=== PATIENT | female | born 1965 | race Hispanic/Latino ===

== ENCOUNTER 2023-10-20 13:17 | Inpatient (IN) | payer OTHER ==
[~2023-10-20] VITALS: Ht 152.4 cm; Wt 75.3 kg
[2023-10-20 14:46] LABS: BASOPHILS # (AUTO) 0.04 K/uL (0.00-0.20); BASOPHILS % (AUTO) 0.5 % (0.0-5.0); EOSINOPHILS # (AUTO) 0.51 K/uL (0.00-0.70); EOSINOPHILS % (AUTO) 6.4 % (0.0-8.0); HEMATOCRIT 28.2 % (36-48); IMMATURE GRANULOCYTE ABSOLUTE 0.03 K/uL (0-1); LYMPHOCYTES # (AUTO) 1.2 K/uL (1.0-4.8); MEAN CORPUSCULAR HEMOGLOBIN 27.9 pg (27.0-33.0); MEAN CORPUSCULAR VOLUME 84.7 fL (79-99); MONOCYTES # (AUTO) 0.5 K/uL (0.1-1.0); MONOCYTES % (AUTO) 6.8 % (3.0-13.0); NEUTROPHILS # (AUTO) 5.6 K/uL (1.8-7.7); NEUTROPHILS % (AUTO) 70.9 % (40.0-77.0); PLATELET COUNT (AUTO) 281 K/uL (130-400); RED BLOOD CELL COUNT(AUTO) 3.33 MIL/uL (4.00-5.50); WHITE BLOOD COUNT (AUTO) 7.9 K/uL (4.8-10.8)
[2023-10-20 14:59] LABS: INR <= 0.93 (0.85-1.15)
[2023-10-20 15:01] LABS: PARTIAL THROMBOPLASTIN TIME 27.6 SEC (26.3-35.5)
[2023-10-20 15:11] LABS: B-TYPE NATRIURETIC PEPTIDE 919 pg/mL (0-100)
[2023-10-20 15:16] LABS: POTASSIUM 5.8 mmol/L (3.5-5.1)
[2023-10-20 15:29] LABS: ALBUMIN 2.3 g/dL (3.5-5.0); BILIRUBIN,TOTAL 0.3 mg/dL (0.2-1.0); MAGNESIUM 1.9 mg/dL (1.80-2.40); TOTAL PROTEIN, SERUM 6.6 g/dL (6.0-8.3)
[2023-10-20] MEDS: FUROSEMIDE 40MG VIAL IV ONE (15:56)
[2023-10-20] MEDS: HYDRALAZINE 20MG/ML VIAL IV ONE (16:10)
[2023-10-20 16:52] LABS: APPEARANCE,URINE CLOUDY (CLEAR); BILIRUBIN,URINE NEGATIVE (NEGATIVE); COLOR,URINE LIGHT-YELLOW (YELLOW); GLUCOSE, URINE (UA) 50 mg/dL (NEGATIVE); KETONES,URINE NEGATIVE (NEGATIVE); LEUKOCYTE ESTERASE ,URINE 75 Leu/uL (NEGATIVE); NITRATE,URINE NEGATIVE (NEGATIVE); PROTEIN,URINE 200 mg/dL (NEGATIVE); UROBILINOGEN,URINE 0.2 mg/dL (0.2-1.0)
[2023-10-20 16:55] LABS: ADD UA MICROSCOPIC YES
[2023-10-20 16:57] LABS: BACTERIA,URINE MOD /HPF (None Seen); MUCUS,URINE RARE LPF (None Seen); SQUAMOUS EPITHELIAL CELL,UR RARE /HPF (0-2); WBC,URINE 26-50 /HPF (0-1)
[2023-10-20] MEDS ORDERED: DEXTROSE 50%-WATER 50 ML DISP.SYRIN IV PRN (18:00)
[2023-10-20] MEDS ORDERED: GLUCAGON 1MG KIT 1 MG ML IM PRN (18:00)
[2023-10-20 18:30] VITALS: O2SAT 98
[2023-10-20 18:57] VITALS: BP 160/82; PULSE 82; RESP 18
[2023-10-20 19:00] VITALS: BP 165/78; PULSE 82; RESP 20
[2023-10-20] MEDS ORDERED: POTA-202 PO (19:02)
[2023-10-20] MEDS ORDERED: BUME1TAB6 PO (19:02)
[2023-10-20] MEDS ORDERED: PANT40TA PO (19:02)
[2023-10-20] MEDS ORDERED: FERR-72 PO (19:02)
[2023-10-20] MEDS ORDERED: CYAN250010 PO (19:02)
[2023-10-20] MEDS ORDERED: HYDR50TA37 PO (19:02)
[2023-10-20] MEDS ORDERED: FOLI1TAB85 PO (19:02)
[2023-10-20] MEDS ORDERED: CARV25TA PO (19:02)
[2023-10-20] MEDS: KAYEXALATE 15GM/60ML PO ONE (19:45)
[2023-10-20] MEDS: HEPARIN 5,000 UNIT VIAL SQ SCH (19:50)
[2023-10-20 20:24] VITALS: O2SAT 97
[2023-10-20] MEDS: INSULIN HUMULIN R 100 UNIT/ML 3ML SQ SCH (21:00)
[2023-10-20 23:47] VITALS: BP 165/82; PULSE 81; RESP 20
[2023-10-21] VITALS (8 sets, daily range): BP systolic 125–193; BP diastolic 55–97; PULSE 67–91; RESP 17–20; O2SAT 97–98
[2023-10-21 04:38] LABS: BASOPHILS # (AUTO) 0.06 K/uL (0.00-0.20); BASOPHILS % (AUTO) 0.7 % (0.0-5.0); EOSINOPHILS % (AUTO) 4.5 % (0.0-8.0); HEMATOCRIT 27.1 % (36-48); IMMATURE GRANULOCYTE ABSOLUTE 0.03 K/uL (0-1); LYMPHOCYTES # (AUTO) 1.1 K/uL (1.0-4.8); LYMPHOCYTES % (AUTO) 11.9 % (21.0-51.0); MEAN CORPUSCULAR HEMOGLOBIN 28.3 pg (27.0-33.0); MEAN CORPUSCULAR HGB CONC 33.6 g/dL (32.0-36.0); MEAN CORPUSCULAR VOLUME 84.2 fL (79-99); MONOCYTES # (AUTO) 0.7 K/uL (0.1-1.0); MONOCYTES % (AUTO) 7.7 % (3.0-13.0); NEUTROPHILS # (AUTO) 6.6 K/uL (1.8-7.7); NEUTROPHILS % (AUTO) 74.9 % (40.0-77.0); PLATELET COUNT (AUTO) 274 K/uL (130-400); RED BLOOD CELL COUNT(AUTO) 3.22 MIL/uL (4.00-5.50); RED CELL DISTRIBUTION WIDTH 15.9 % (11.0-15.5); WHITE BLOOD COUNT (AUTO) 8.9 K/uL (4.8-10.8)
[2023-10-21] MEDS: HYDRALAZINE 20MG/ML VIAL IV PRN ×2 (04:45→13:00)
[2023-10-21 04:53] LABS: % IRON SATURATION 33.8 % (22-44)
[2023-10-21 04:59] LABS: HEMOGLOBIN A1C 6.4 % (4.0-6.0)
[2023-10-21 05:08] LABS: ALBUMIN 2.1 g/dL (3.5-5.0); BILIRUBIN,TOTAL 0.3 mg/dL (0.2-1.0); POTASSIUM 4.7 mmol/L (3.5-5.1); TOTAL PROTEIN, SERUM 6.1 g/dL (6.0-8.3)
[2023-10-21] MEDS: ACETAMINOPHEN 650 MG/20.3 ML UDCUP PO PRN (06:17)
[2023-10-21] MEDS: FUROSEMIDE 40MG VIAL IV SCH ×2 (08:12→21:17)
[2023-10-21] MEDS: ONDANSETRON 4MG INJ IVP PRN (08:20)
[2023-10-21] MEDS: HYDRALAZINE 25MG TABLET PO SCH (09:31)
[2023-10-21] MEDS ORDERED: MORPHINE 2 MG SYG IVP PRN (11:30)
[2023-10-21] MEDS: ACETAMINOPHEN WITH CODEINE 1 TAB TAB PO PRN (12:42)
[2023-10-21] MEDS: CEFTRIAXONE 1G VIAL IVPB SCH (12:54)
[2023-10-21] MEDS: KCL 20 MEQ ERTAB PO SCH (21:00)
[2023-10-21] MEDS: CARVEDILOL 25 MG TABLET PO SCH (21:18)
[2023-10-22] VITALS (7 sets, daily range): BP systolic 140–173; BP diastolic 64–73; PULSE 70–81; RESP 19–22; O2SAT 97
[2023-10-22 05:16] LABS: HEMATOCRIT 22.3 % (36-48); MEAN CORPUSCULAR HEMOGLOBIN 28.6 pg (27.0-33.0); MEAN CORPUSCULAR HGB CONC 32.3 g/dL (32.0-36.0); MEAN CORPUSCULAR VOLUME 88.5 fL (79-99); RED BLOOD CELL COUNT(AUTO) 2.52 MIL/uL (4.00-5.50); RED CELL DISTRIBUTION WIDTH 16.3 % (11.0-15.5); WHITE BLOOD COUNT (AUTO) 7.5 K/uL (4.8-10.8)
[2023-10-22 05:42] LABS: CREATININE 4.2 mg/dL (0.5-1.5); MAGNESIUM 1.8 mg/dL (1.80-2.40); POTASSIUM 4.4 mmol/L (3.5-5.1)
[2023-10-22] MEDS: PANTOPRAZOLE 40 MG TAB DR PO SCH (09:57)
[2023-10-22] MEDS: FERROUS SULFATE 325 MG TABLET.DR PO SCH (09:58)
[2023-10-22] MEDS: CYANOCOBALAMIN (VITAMIN B-12) 1,000 MCG TABLET PO SCH (09:58)
[2023-10-22] MEDS: Vitamin B Complex/Vit C/Folic Acid PO SCH (09:58)
[2023-10-22 12:09] LABS: COLLECTION PERIOD,URINE 24 HR
[2023-10-22 12:10] LABS: TOTAL VOLUME 24HRS,URINE 900 mL; TPROTEIN TIMED,URINE 534 mg/dL; TPROTEIN U,24HR CALC 4806 mg/24HR (0-165)
[2023-10-22 12:11] LABS: CREATININE,SERUM FOR CRCL 4.2 mg/dL (0.6-1.3)
[2023-10-22] MEDS: ACETAMINOPHEN WITH CODEINE 1 TAB TAB PO PRN (12:13)
[2023-10-23] VITALS (7 sets, daily range): BP systolic 126–191; BP diastolic 60–90; PULSE 62–81; RESP 18–19; O2SAT 96–98
[2023-10-23] MEDS: FUROSEMIDE 40MG VIAL IV SCH (00:46)
[2023-10-23 05:38] LABS: HEMATOCRIT 22.7 % (36-48); MEAN CORPUSCULAR HEMOGLOBIN 28.1 pg (27.0-33.0); MEAN CORPUSCULAR HGB CONC 32.6 g/dL (32.0-36.0); MEAN CORPUSCULAR VOLUME 86.3 fL (79-99); RED BLOOD CELL COUNT(AUTO) 2.63 MIL/uL (4.00-5.50); RED CELL DISTRIBUTION WIDTH 15.9 % (11.0-15.5); WHITE BLOOD COUNT (AUTO) 6.5 K/uL (4.8-10.8)
[2023-10-23 05:54] LABS: ALBUMIN 1.9 g/dL (3.5-5.0); BILIRUBIN,TOTAL 0.2 mg/dL (0.2-1.0); MAGNESIUM 1.8 mg/dL (1.80-2.40); POTASSIUM 4.3 mmol/L (3.5-5.1); TOTAL PROTEIN, SERUM 5.4 g/dL (6.0-8.3)
[2023-10-23] MEDS: SPIRONOLACTONE 25 MG TAB PO SCH (08:05)
[2023-10-23] MEDS: HYDROCHLOROTHIAZIDE 25 MG TABLET PO SCH (14:14)
[2023-10-23] MEDS: ACETAMINOPHEN WITH CODEINE 1 TAB TAB PO PRN (22:32)
[2023-10-24] VITALS (7 sets, daily range): BP systolic 143–168; BP diastolic 64–81; PULSE 66–80; RESP 16–20; O2SAT 96–99
[2023-10-24 05:19] LABS: BASOPHILS # (AUTO) 0.04 K/uL (0.00-0.20); BASOPHILS % (AUTO) 0.7 % (0.0-5.0); EOSINOPHILS # (AUTO) 0.38 K/uL (0.00-0.70); EOSINOPHILS % (AUTO) 6.2 % (0.0-8.0); HEMATOCRIT 23.9 % (36-48); IMMATURE GRANULOCYTE ABSOLUTE 0.02 K/uL (0-1); LYMPHOCYTES # (AUTO) 1.1 K/uL (1.0-4.8); LYMPHOCYTES % (AUTO) 17.1 % (21.0-51.0); MEAN CORPUSCULAR HEMOGLOBIN 28.8 pg (27.0-33.0); MEAN CORPUSCULAR HGB CONC 32.6 g/dL (32.0-36.0); MEAN CORPUSCULAR VOLUME 88.2 fL (79-99); MONOCYTES # (AUTO) 0.6 K/uL (0.1-1.0); MONOCYTES % (AUTO) 10.2 % (3.0-13.0); NEUTROPHILS % (AUTO) 65.5 % (40.0-77.0); PLATELET COUNT (AUTO) 217 K/uL (130-400); RED BLOOD CELL COUNT(AUTO) 2.71 MIL/uL (4.00-5.50); RED CELL DISTRIBUTION WIDTH 15.9 % (11.0-15.5); WHITE BLOOD COUNT (AUTO) 6.2 K/uL (4.8-10.8)
[2023-10-24 05:35] LABS: % IRON SATURATION 38.2 % (22-44)
[2023-10-24 05:47] LABS: B-TYPE NATRIURETIC PEPTIDE 497 pg/mL (0-100)
[2023-10-24] MEDS: FUROSEMIDE 40 MG TABLET PO SCH (06:00)
[2023-10-24 06:05] LABS: ALANINE AMINOTRANSFERASE 13 U/L (12-78); ASPARTATE AMINOTRANSFERASE 22 U/L (10-37); BILIRUBIN,TOTAL 0.2 mg/dL (0.2-1.0); CARBON DIOXIDE 24 mmol/L (21-32); CHLORIDE 104 mmol/L (101-111); FERRITIN 615 ng/mL (15-150); GLOMERULAR FILTR. RATE CALC 12 mL/min (>90); GLUCOSE,RANDOM 137 mg/dL (70-105); PHOSPHORUS 5.7 mg/dL (2.5-4.9); SODIUM SERUM 136 mmol/L (136-145); TOTAL PROTEIN, SERUM 5.7 g/dL (6.0-8.3); UREA NITROGEN, BLOOD 49 mg/dL (7-18)
[2023-10-24] MEDS ORDERED: ONDANSETRON 4MG TABLET PO PRN (10:00)
[2023-10-24] MEDS ORDERED: FURO40TA7 PO (11:43)
[2023-10-24] MEDS ORDERED: SPIR25TA6 PO (11:43)
[2023-10-24] MEDS ORDERED: CEPH500B PO (12:33)
== END 2023-10-24 15:30 | disposition home or self-care (01) | DRG 683 ==
LOC: EDH 13:17 → EDHIP 16:37 → 3DH 17:01
PROVIDERS: ADMIT Hospitalist; ATTEND Hospitalist
DX: N17.9 Acute kidney failure, unspecified (principal); E87.1 Hypo-osmolality and hyponatremia; I13.2 Hypertensive heart and chronic kidney disease with heart failure and with stage 5 chronic kidney disease, or end stage renal disease; N39.0 Urinary tract infection, site not specified; I31.39 Other pericardial effusion (noninflammatory); N18.5 Chronic kidney disease, stage 5; E11.22 Type 2 diabetes mellitus with diabetic chronic kidney disease; D63.1 Anemia in chronic kidney disease; E66.9 Obesity, unspecified; I50.9 Heart failure, unspecified; I16.0 Hypertensive urgency; G89.29 Other chronic pain; E78.00 Pure hypercholesterolemia, unspecified; E87.5 Hyperkalemia; Z79.899 Other long term (current) drug therapy; Z83.3 Family history of diabetes mellitus; Z68.32 Body mass index [BMI] 32.0-32.9, adult
CPT/HCPCS: 36415; 71045; 76770; 80048; 80053; 81001; 82575; 82607; 82728; 82746; 82948; 83036; 83540; 83550; 83605; 83735; 83880; 84100; 84156; 84484; 85025; 85027; 85610; 85730; 87077; 87088; 87186; 93005; 93306; 93970; 94760; G0378; J0360; J0696; J1644; J1815; J1940; J2405